=== PATIENT | female | born 2000 | race Caucasian/White ===

== ENCOUNTER 2022-03-08 14:00 | Outpatient (RCR) | payer OTHER, SELFPAY | END 2022-04-26 14:41 | disposition home or self-care (01) | LOC: HO.PT 14:00 | PROVIDERS: Visit Provider Advanced Practice Midwife | DX: N39.3 Stress incontinence (female) (male) (principal) | CPT/HCPCS: 97112; 97161 ==

== ENCOUNTER 2024-01-01 11:00 | Outpatient (RCR) | payer OTHER, SELFPAY | END 2024-01-31 15:14 | disposition home or self-care (01) | LOC: HO.PT 11:00 | PROVIDERS: Visit Provider Nurse Practitioner Family | DX: R32 Unspecified urinary incontinence (principal) | CPT/HCPCS: 97112; 97140; 97162 ==